=== PATIENT | female | born 1965 | race Caucasian/White ===

== ENCOUNTER 2023-10-13 13:19 | Outpatient (CLI) | payer BC, OTHER ==
--- NOTE | 2023-10-13 13:11 | SLEEP CARE CONSULTATION ---
Information from patient questionnaire entered by Linda Campbell. I have reviewed and concur with the information entered by Linda Campbell. This document represents the service I personally performed and the decisions made by me, Josseline Arevalo ARNP. History of Present Illness Service Date and Time: 10/13/2023 1300 Reason for follow up: other (9 MONTH F/U PT NEED NEW SLEEP STUDY) HPI additional information: I had the pleasure of seeing SWEETIE WINSLOW today via video appointment regarding the possibility of her having a sleep disorder. She was last seen in our office about 9 months ago but she did not complete ordered sleep study. Her current complaints are snoring, observed pauses in breathing, unrefreshed sleep. The patient tells me that she normally goes to bed around 9 pm, and it takes her approximately 5-10 minutes to fall asleep. She has been told that she snores loudly and irregularly at night. She has been observed to stop breathing in her sleep. Her bed partner has to sleep in another room due to the loudness of her snoring. She feels like when she lays on her back her throat closes. She can recall waking up on the average of 1-2 times during the night. Most of the time she wakes up because of her cat needs feeding every 3-4 hours. She has occasionally awakened for her own snoring, choking, and having to gasp for air. There is not a lot of tossing and turning in her sleep. Generally there is no recollection of dreams. She usually wakes up at 0600 and feels refreshed. She usually does have a morning headache. She has these 1-2 times a week that last long time. During the day she does not feel sleepy and fatigued. She has never fallen asleep while driving nor has any accident due to sleepiness. She usually does not take naps during the day. If she naps, upon falling asleep during the day she denies having vivid dreams. She denies having impaired concentration during the day. There is no somniloquy (sleep talking) but no somnambulism (sleep walking). She has never experienced sleep paralysis, cataplexy, or symptoms of restless leg syndrome. Subjective Initial [place] Sleepiness Scale score: 5 (01/27/23) Current [place] Sleepiness Scale score: 6 (10/13/23) Allergies and Home Medications Known drug allergies: Yes (as listed) Drug allergies reviewed: Yes Home medication list reviewed: Yes (stopped sertraline) Allergy and home medication list: Allergies levofloxacin [From Levaquin] Allergy (Verified 10/13/23 08:28) tetracycline Allergy (Verified 10/13/23 08:28) Review of Systems Review of systems same as previous: Yes (NO CHANGE) Physical Exam Vital signs obtained and entered by: LINDA Neal MA Height: 5 ft 1 in (PER PT) Weight: 138 lb (PER PT) Body Mass Index: 26.0 BMI Classification: Overweight Impression and Plan 1. Suspected Obstructive Sleep Apnea-Hypopnea Syndrome, as suggested by a history of loud and irregular snoring, observed cessation of breath while asleep, gasping or choking in sleep and morning headache. Narrow oropharynx and obesity are common predisposing factors for obstructive sleep apnea-hypopnea syndrome. I recommend proceeding to polysomnography to confirm the diagnosis and to assess severity. If the patient has significant sleep disordered breathing, a manual CPAP titration study will also be performed to find the optimal treatment pressure. I informed the patient of what the sleep studies involve and after some discussion, obtained agreement to proceed. The pathophysiology of obstruct mable sleep apnea-hypopnea syndrome was discussed with the patient and health risks of cardiovascular and cerebrovascular disease if not treated. Risks of drowsy driving discussed in detail and patient advised to avoid long distance driving and to bone char puller at the first sign of drowsiness. Patient agreed to plan. 2. Overweight, unspecified. Currently patients BMI is 26. Obesity increases the risk of apnea, CPAP pressure requirements and overall health risks especially cardiovascular and diabetes. Thus patient is advised to maintain a healthy weight. * Schedule polysomnography. * Avoid long distance driving or driving when feeling sleepy. * Avoid alcohol, sedative and muscle relaxant around bedtime. * Attempt to lose weight. * Review instructions provided by trained office staff on how to prepare for the sleep study. * Return for follow-up after sleep study completed. Counseling Topics: Weight loss health impact Follow up with Sleep Care in: other (for review of results) Plan: PSG/HST Visit Type: Telehealth Video Video Type: Doximity Patient Location: Work Location of Provider: Office Patient agrees and consents to this telehealth visit type: Yes Time Spent with Patient (minutes): 15 Provider Statement: I spent 100% of the Telehealth Video Call with the patient with greater than 50% spent counseling the patient and coordination of care.
== END 2023-10-13 13:20 | disposition home or self-care (01) ==
LOC: SC 13:19
PROVIDERS: ATTEND Nurse Practitioner Family
DX: G47.8 Other sleep disorders (principal); R06.83 Snoring; R51.9 Headache, unspecified

== ENCOUNTER 2023-11-12 09:21 | Outpatient (CLI) | payer OTHER | END 2023-11-12 09:22 | disposition home or self-care (01) | LOC: SC 09:21 | PROVIDERS: ATTEND Nurse Practitioner Family | DX: G47.33 Obstructive sleep apnea (adult) (pediatric) (principal); R09.02 Hypoxemia | CPT/HCPCS: 95806 ==

== ENCOUNTER 2023-11-30 09:07 | Outpatient (CLI) | payer OTHER ==
--- NOTE | 2023-11-30 10:05 | Sleep Patient Instructions ---
Sleep Center Visit Summary - Patient Visit Information Reason for Visit: Sleep study follow-up - Patient Instructions Additional Instructions: You will call us to let us know when your are ready to go for titration study. You will be completing a titration sleep study in our sleep lab where you will be sleeping with the CPAP machine on and we will be adjusting your pressures to find your optimal pressure settings. Once we have your results back, we will call you and schedule a follow up to go over the results, you may contact us with any questions or issues as needed. Please call office to schedule a follow up appointment in the sleep care office. - Clinic Information Contact: [facility] [address] [place] [id number] [email or web address] T: [phone]
--- NOTE | 2023-11-30 10:11 | SLEEP CARE CONSULTATION ---
Information from patient questionnaire entered by Linda Campbell. I have reviewed and concur with the information entered by Linda Campbell. This document represents the service I personally performed and the decisions made by me, Josseline Arevalo ARNP. History of Present Illness Service Date and Time: 11/30/2023906 Initial [place] Sleepiness Scale score: 5 (01/27/23) Current [place] Sleepiness Scale score: 5 (11/30/23) Additional HPI information: SWEETIE WINSLOW returns for follow up and results of the recently performed home sleep study. The sleep study showed obstructive sleep apnea with an average AHI of 47.3 and maribel oxygen saturation of 81%. I explained the pathophysiology behind obstructive sleep apnea. We then spent quite a bit of time discussing different treatment options. For mild obstructive sleep apnea, surgery and oral appliance are alternatives to nasal CPAP therapy but in moderate or severe cases, nasal CPAP is the most effective and reliable treatment. I reviewed the impact of weight changes on sleep apnea and strongly recommended losing weight. After some discussion, the patient opted to go with the nasal CPAP therapy. A manual titration study will be ordered to find optimal pressure with office adjustments. I explained how CPAP machine works and what to expect when using the machine. Using CPAP every night in order to get used to it was emphasized. Patient advised to put CPAP mask on before getting into bed so as not to fall asleep without CPAP. To assist acclimation to CPAP use, it could also be used for a short time during day while reading or watching TV. The patient was instructed to call the CPAP supplier to discuss any mechanical problem that may occur. If the mask given is uncomfortable or is difficult to keep on through the night even with adjustment, contact the CPAP supplier as many will replace with another mask style if notified before 30 days. If snoring or perceives is not getting enough air or too much air from the machine, notify this office. Patient counseled not drink alcohol less than 4 hours before bedtime as it can increase snoring and apnea. Patient was cautioned about risks of drowsy driving until sleepiness symptoms resolve. Patient denies drowsy driving. Sleep Study - Results Type of Sleep Study: Home sleep study (COMPLETED 11/12/23) Polysomnography/Home Sleep Study results: Physician Impression: The quality of the study is good. The length of the study is adequate (> 240 minutes). Please also see the tabulated and graphic data. 1. Obstructive Sleep Apnea-Hypopnea (ICD-10 G47.33), severe, with an AHI of 47.3/hr and maribel SaO2 of 81%. During the study, the patient had 391 apneas (391 obstructive, 0 central, 0 mixed) and 39 hypopneas. The longest episode lasted 104.5 seconds. The respiratory events occurred more frequently during supine sleep (supine AHI was 108.4 and non-supine, 39.14). 2. Hypoxemia (ICD-10 R09.02), mild, with the lowest oxygen saturation of 81 % and 34.9 minutes with SaO2 under 90%. Baseline oxygen saturation was normal (Average oxygen saturation was 93%). Allergies and Home Medications Known drug allergies: Yes (as listed) Drug allergies reviewed: Yes Home medication list reviewed: Yes (Prempro, Trintllex) Allergy and home medication list: Allergies levofloxacin [From Levaquin] Allergy (Verified 11/25/23 11:11) tetracycline Allergy (Verified 11/25/23 11:11) Review of Systems Review of systems same as previous: Yes (NO CHANGE) Physical Exam Vital signs obtained and entered by: LINDA Neal MA Blood Pressure: 128/96 (RIGHT ARM) Cuff size: regular Heart Rate: 96 O2 Saturation: 96 Height: 5 ft 1 in (PER PT) Weight: 135 lb 6.4 oz Body Mass Index: 25.5 BMI Classification: Overweight Impression and Plan 1. Obstructive Sleep Apnea-Hypopnea Syndrome, severe, with lowest oxygen saturation of 81%. Obviously this is the cause of the patients symptoms of unrefreshed sleep, and excessive daytime sleepiness. Positive pressure therapy could benefit depression, gastric reflux and attention deficit. Patient would like to call to schedule titration after she follows up with other doctors before initiating therapy through a titration study. The patient would be started on nasal autoCPAP therapy. A manual titration study will be completed to find optimal treatment pressure. Compliance guidelines also reviewed. Because the apnea is more severe supine, I instructed to avoid sleeping supine using pillow positioning with head elevated until able to start CPAP use. 2. Hypoxemia, , with a maribel oxygen saturation of mild% and 34.9 minutes spent under 90%. The baseline oxygen saturation was normal with an average oxygen saturation of 93%. 3. Overweight, unspecified. Currently patients BMI is 25.5. Obesity increases the risk of apnea, CPAP pressure requirements and overall health risks especially cardiovascular and diabetes. Thus patient is advised to maintain a healthy weight. * Titration study---patient to call once she makes decision to go forward with CPAP * Maintain healthy weight. * Avoid alcohol consumption near bedtime. * Avoid supine sleep until using CPAP. * The patient is again cautioned about driving until sleepiness completely resolves. * Return after titration study for results review and CPAP setup. Counseling Topics: Sleeping position, Weight loss health impact Visit Type: In Office Time Spent with Patient (minutes): 23 Provider Statement: I spent 100% of the Face to Face Visit with the patient with greater than 50% spent counseling the patient and coordination of care.
[2023-11-30 10:19] VITALS: BP 128/96; O2SAT 96
== END 2023-11-30 09:08 | disposition home or self-care (01) ==
LOC: SC 09:07
PROVIDERS: ATTEND Nurse Practitioner Family
DX: G47.33 Obstructive sleep apnea (adult) (pediatric) (principal); R09.02 Hypoxemia; E66.3 Overweight; Z68.25 Body mass index [BMI] 25.0-25.9, adult
CPT/HCPCS: 99212; 99213